=== PATIENT | female | born 1945 | race Caucasian/White ===

== ENCOUNTER 2018-03-30 10:26 | Outpatient (REF) | payer MEDICARE, SELFPAY ==
[2018-03-30 20:32] LABS: Uric Acid 3.2 mg/dL (2.6-6.0)
[2018-03-30 20:34] LABS: Abs Immature Grans 0.01 k/cumm (0.0-0.09); Absolute Basophil Count 0.03 k/cumm (0.0-0.2); Absolute Eosinophil Count 0.08 k/cumm (0.0-0.7); Absolute Lymphocyte Count 1.12 k/cumm (1.2-3.4); Absolute Neutrophil Count 5.63 k/cumm (1.2-6.7); Basophils % 0.4; Eosinophils % 1.1; HCT 43.9 % (36.0-46.0); HGB 14.4 g/dL (12.0-15.5); Immature Grans % 0.1; Lymphocytes % 15.2; Mean Corp. HGB Concentration 32.8 g/dL (32.0-36.0); Mean Corpuscular Volume 103.8 fL (80-95); Mean Platelet Volume 12.8 fL (8.0-11.0); Monocytes % 6.8; Neutrophils % 76.4; Platelet Count 102 x1000/uL (130-400); RBC 4.23 m/cumm (4.00-5.20); White Blood Cell Count 7.37 k/cumm (4.4-10.8)
== END 2018-03-30 10:46 ==
LOC: NCHCN 10:26
PROVIDERS: PCP Internal Medicine; Visit Provider Internal Medicine
DX: D69.6 Thrombocytopenia, unspecified (principal); M1A.0790 Idiopathic chronic gout, unspecified ankle and foot, without tophus (tophi)
CPT/HCPCS: 84550; 85025

== ENCOUNTER 2018-10-31 15:54 | Outpatient (REF) | payer MEDICARE, SELFPAY ==
[2018-10-31 19:46] LABS: HCT 45.4 % (36.0-46.0); Mean Corpuscular Hemoglobin 35.5 pg (27.0-33.0); Mean Corpuscular Volume 107.3 fL (80-95); Mean Platelet Volume 12.3 fL (8.0-11.0); RBC 4.23 m/cumm (4.00-5.20); RBC Distribution Width 16.1 % (11.7-14.6); White Blood Cell Count 5.16 k/cumm (4.4-10.8)
[2018-10-31 19:59] LABS: ALT 38 U/L (12-78); AST 25 U/L (15-37); Albumin 3.7 g/dL (3.4-5.0); Alkaline Phosphatase 121 U/L (46-116); BUN 12 mg/dL (7-18); Bilirubin, Total 0.6 mg/dL (0.2-1.0); CREATININE 0.79 mg/dL (0.55-1.02); Calcium 9.3 mg/dL (8.5-10.1); Chloride 104 mmol/L (98-107); Glucose 164 mg/dL (70-100); Sodium 140 mmol/L (136-145); Total Protein 6.7 g/dL (6.4-8.2); Uric Acid 3.1 mg/dL (2.6-6.0)
[2018-10-31 21:22] LABS: Platelet Count 96 x1000/uL (130-400)
== END 2018-10-31 16:14 ==
LOC: NCHCN 15:54
PROVIDERS: PCP Internal Medicine; Visit Provider Internal Medicine
DX: I10 Essential (primary) hypertension (principal); M81.0 Age-related osteoporosis without current pathological fracture; M1A.0790 Idiopathic chronic gout, unspecified ankle and foot, without tophus (tophi)
CPT/HCPCS: 80053; 85027; 84550

== ENCOUNTER 2019-11-06 18:18 | Outpatient (REF) | payer MEDICARE, SELFPAY ==
[2019-11-06 19:14] LABS: HCT 46.4 % (36.0-46.0); HGB 15.1 g/dL (12.0-15.5); Mean Corp. HGB Concentration 32.5 g/dL (32.0-36.0); Mean Corpuscular Hemoglobin 33.6 pg (27.0-33.0); Mean Corpuscular Volume 103.1 fL (80-95); Mean Platelet Volume 13.2 fL (8.0-11.0); RBC Distribution Width 14.9 % (11.7-14.6); White Blood Cell Count 5.11 k/cumm (4.4-10.8)
[2019-11-06 19:22] LABS: ALT 31 U/L (14-59); AST 24 U/L (15-37); Albumin 3.7 g/dL (3.4-5.0); Alkaline Phosphatase 113 U/L (46-116); Anion Gap 10.4 mmol/L (3-11); BUN 12 mg/dL (7-18); Bilirubin, Total 0.7 mg/dL (0.2-1.0); CO2 26.6 mmol/L (21.0-32.0); CREATININE 0.74 mg/dL (0.55-1.02); Chloride 104 mmol/L (98-107); Glucose 247 mg/dL (74-106); Potassium 4.1 mmol/L (3.5-5.1); Sodium 141 mmol/L (136-145); Total Protein 6.6 g/dL (6.4-8.2)
[2019-11-06 19:59] LABS: Platelet Count 88 x1000/uL (130-400)
== END 2019-11-06 18:38 ==
LOC: NCHCN 18:18
PROVIDERS: PCP Internal Medicine; Visit Provider Internal Medicine
DX: I10 Essential (primary) hypertension (principal); J44.9 Chronic obstructive pulmonary disease, unspecified; F17.210 Nicotine dependence, cigarettes, uncomplicated; M06.9 Rheumatoid arthritis, unspecified
CPT/HCPCS: 80053; 85027

== ENCOUNTER 2019-11-13 17:30 | Outpatient (REF) | payer MEDICARE, SELFPAY ==
[2019-11-13 20:20] LABS: COMMENT (LAB VIEW ONLY) 44.49 mg/dL; Microalb ug/mg Crea 24.7 ug/mg Cr
== END 2019-11-13 17:50 ==
LOC: LBN 17:30
PROVIDERS: PCP Internal Medicine; Visit Provider Internal Medicine
DX: E11.9 Type 2 diabetes mellitus without complications (principal)
CPT/HCPCS: 82043; 82570

== ENCOUNTER 2019-11-27 13:02 | Outpatient (REF) | payer MEDICARE, SELFPAY ==
[2019-11-27 20:05] LABS: Absolute Basophil Count 0.03 k/cumm (0.0-0.2); Absolute Eosinophil Count 0.11 k/cumm (0.0-0.7); Absolute Lymphocyte Count 0.98 k/cumm (1.2-3.4); Absolute Monocyte Count 0.46 k/cumm (0.11-0.7); Absolute Neutrophil Count 3.27 k/cumm (1.2-6.7); Basophils % 0.6; Eosinophils % 2.3; HCT 46.6 % (36.0-46.0); HGB 15.4 g/dL (12.0-15.5); Lymphocytes % 20.2; Mean Corpuscular Hemoglobin 33.6 pg (27.0-33.0); Mean Corpuscular Volume 101.5 fL (80-95); Mean Platelet Volume 13.1 fL (8.0-11.0); Monocytes % 9.5; Neutrophils % 67.4; Platelet Count 85 x1000/uL (130-400); RBC 4.59 m/cumm (4.00-5.20); RBC Distribution Width 14.9 % (11.7-14.6); White Blood Cell Count 4.85 k/cumm (4.4-10.8)
[2019-11-27 20:17] LABS: Prothrombin Time 10.3 sec (9.3-11.0)
[2019-11-27 20:23] LABS: Diff Comment PLT Morph Reviewed
[2019-11-27 20:52] LABS: Vitamin B12 102 pg/mL (193-986)
[2019-11-27 20:58] LABS: Folate > 20.0 ng/mL (8.6-20.0)
[2019-11-29 13:47] LABS: Albumin 59.4 % (55.8-66.1); Total Protein 6.6 g/dL (6.3-8.2)
[2019-11-30 15:11] LABS: Misc Referral (MAYO) See Comments
[2019-12-02 12:15] LABS: Methylmalonic Acid 0.67 nmol/mL (<=0.40)
== END 2019-11-27 13:22 ==
LOC: NCHCN 13:02
PROVIDERS: PCP Internal Medicine; Visit Provider Internal Medicine
DX: D69.6 Thrombocytopenia, unspecified (principal); Z51.81 Encounter for therapeutic drug level monitoring
CPT/HCPCS: 80186; 86022; 82607; 82746; 84165; 85025; 85610

== ENCOUNTER 2020-05-13 19:52 | Outpatient (REF) | payer MEDICARE, SELFPAY ==
[2020-05-16 21:40] LABS: COVID-19 RT-PCR Result NEGATIVE (Negative)
== END 2020-05-13 20:12 ==
LOC: NCHCN 19:52
PROVIDERS: PCP Internal Medicine; Visit Provider Internal Medicine
DX: J06.9 Acute upper respiratory infection, unspecified (principal)
CPT/HCPCS: U0003

== ENCOUNTER 2020-09-06 14:47 | Outpatient (REF) | payer MEDICARE, SELFPAY ==
--- NOTE | 2020-09-06 11:30 | SKI_PTH ---
PATIENT: June Deras LOC: [facility] U#:[id number] AGE/SX: 75/F ROOM: RE09/06/[address]: Mehrdad Chu : 1945 BED: DIS: 09/06/2020 SPEC #: [id number] RECD: 09/09/20 08:01 STATUS: VLAD AMES #: [id number] MARITZA: 09/06/20 11:[address]: Mehrdad Chu DEPT: Surgical Specimen RECD BY: Azul Currie Tissues: 1 - SKIN BIOPSY(SHAVE/PUNCH) Procedures: SKIN LEVEL 4 Comments: [id number]
== END 2020-09-06 14:48 | disposition home or self-care (01) ==
LOC: NCHCN 14:47
PROVIDERS: PCP Internal Medicine; Visit Provider Internal Medicine
DX: B07.8 Other viral warts (principal); L98.8 Other specified disorders of the skin and subcutaneous tissue
CPT/HCPCS: 88305

== ENCOUNTER 2020-11-20 16:49 | Outpatient (REF) | payer MEDICARE, SELFPAY ==
[2020-11-20 20:30] LABS: Abs Immature Grans 0.04 10^3/uL (0.0-0.06); Absolute Basophil Count 0.04 10^3/uL (0.0-0.2); Absolute Lymphocyte Count 0.65 10^3/uL (1.2-3.4); Absolute Monocyte Count 0.81 10^3/uL (0.1-0.8); Basophils % 0.4; HCT 37.4 % (36.0-46.0); HGB 10.9 g/dL (11.2-15.7); Immature Grans % 0.4; Lymphocytes % 6.5; MCH 23.4 pg (27.0-33.0); MCHC 29.1 % (32.0-36.0); MCV 80.3 fL (80-95); Monocytes % 8.1; Neutrophils % 84.6; Nucleated RBC 0 %; RBC 4.66 10^6/uL (3.93-5.22); RDW 23.2 % (11.7-14.6); RDW-SD 67.1 fL; WBC 10.04 10^3/uL (4.4-10.8)
[2020-11-20 20:39] LABS: ALT 15 U/L (14-59); AST 15 U/L (15-37); Alkaline Phosphatase 118 U/L (46-116); Anion Gap 10.6 mmol/L (3-11); BUN 9 mg/dL (7-18); Bilirubin, Total 1.1 mg/dL (0.2-1.0); CO2 26.4 mmol/L (21.0-32.0); CREATININE 0.7 mg/dL (0.55-1.02); Calcium 8.5 mg/dL (8.5-10.1); Chloride 101 mmol/L (98-107); Glucose 95 mg/dL (74-106); Potassium 4.1 mmol/L (3.5-5.1); Sodium 138 mmol/L (136-145); Total Protein 6.4 g/dL (6.4-8.2)
[2020-11-20 21:43] LABS: Platelet Count 108 10^3/uL (130-400)
[2020-11-20 21:45] LABS: Anisocytosis 3+; Diff Comment PLT Morph Reviewed; Hypochromasia 2+; Microcytosis 2+
[2020-11-20 21:46] LABS: Poikilocytes 2+
== END 2020-11-20 16:50 | disposition home or self-care (01) ==
LOC: NCHCN 16:49
PROVIDERS: PCP Internal Medicine; Visit Provider Physician Assistant
DX: D50.9 Iron deficiency anemia, unspecified (principal); K74.60 Unspecified cirrhosis of liver
CPT/HCPCS: 80053; 85025

== ENCOUNTER 2021-05-02 10:40 | Outpatient (REF) | payer MEDICARE, SELFPAY ==
[2021-05-04 17:23] LABS: COVID-19 RT-PCR UVMMC Result Negative (Negative)
== END 2021-05-02 10:41 | disposition home or self-care (01) ==
LOC: NCHCN 10:40
PROVIDERS: PCP Internal Medicine; Visit Provider Nurse Practitioner Family
DX: Z20.822 Contact with and (suspected) exposure to COVID-19 (principal); R06.02 Shortness of breath
CPT/HCPCS: U0003

== ENCOUNTER 2021-05-12 19:09 | Outpatient (REF) | payer MEDICARE, SELFPAY ==
[2021-05-12 20:50] LABS: HCT 34.3 % (36.0-46.0); HGB 9.1 g/dL (11.2-15.7); MCH 20.4 pg (27.0-33.0); MCHC 26.5 % (32.0-36.0); MCV 77.1 fL (80-95); RBC 4.45 10^6/uL (3.93-5.22); RDW 20.2 % (11.7-14.6); RDW-SD 56.3 fL; WBC 4.83 10^3/uL (4.4-10.8)
[2021-05-12 20:52] LABS: Platelet Count 110 10^3/uL (130-400)
[2021-05-12 21:13] LABS: ALT 16 U/L (14-59); AST 18 U/L (15-37); Albumin 3.1 g/dL (3.4-5.0); Alkaline Phosphatase 88 U/L (46-116); Anion Gap 7.5 mmol/L (3-11); BUN 7 mg/dL (7-18); Bilirubin, Total 0.8 mg/dL (0.2-1.0); CO2 29.5 mmol/L (21.0-32.0); CREATININE 0.7 mg/dL (0.55-1.02); Calcium 8.3 mg/dL (8.5-10.1); Chloride 106 mmol/L (98-107); Glucose 156 mg/dL (74-106); NT-proBNP 139 pg/mL (<300); Potassium 3.6 mmol/L (3.5-5.1); Sodium 143 mmol/L (136-145); Total Protein 6.4 g/dL (6.4-8.2)
== END 2021-05-12 19:10 | disposition home or self-care (01) ==
LOC: NCHCN 19:09
PROVIDERS: PCP Internal Medicine; Visit Provider Internal Medicine
DX: J44.1 Chronic obstructive pulmonary disease with (acute) exacerbation (principal); E11.9 Type 2 diabetes mellitus without complications
CPT/HCPCS: 80053; 85027; 83880

== ENCOUNTER 2022-04-15 19:47 | Outpatient (REF) | payer MEDICARE, SELFPAY ==
[2022-04-15 19:16] LABS: Vitamin B12 532 pg/mL (193-986)
== END 2022-04-15 19:48 | disposition home or self-care (01) ==
LOC: NCHCN 19:47
PROVIDERS: PCP Internal Medicine; Visit Provider Nurse Practitioner Family
DX: E53.8 Deficiency of other specified B group vitamins (principal)
CPT/HCPCS: 82607

== ENCOUNTER 2022-09-16 14:49 | Outpatient (REF) | payer MEDICARE, SELFPAY ==
[2022-09-16 21:18] LABS: HCT 32.5 % (36.0-46.0); HGB 8.7 g/dL (11.2-15.7); MCH 21.7 pg (27.0-33.0); MCHC 26.8 % (32.0-36.0); MCV 81 fL (80-95); Platelet Count 154 10^3/uL (130-400); RBC 4.01 10^6/uL (3.93-5.22); RDW 23.4 % (11.7-14.6); RDW-SD 69.2 fL; WBC 8.58 10^3/uL (4.4-10.8)
[2022-09-16 21:34] LABS: Prothrombin Time 11.7 sec (9.3-11.0)
[2022-09-16 21:36] LABS: INR 1.1 (0.9-1.1)
[2022-09-16 21:44] LABS: ALT 23 U/L (14-59); AST 16 U/L (15-37); Albumin 3.1 g/dL (3.4-5.0); Alkaline Phosphatase 131 U/L (46-116); Anion Gap 8.7 mmol/L (3-11); BUN 12 mg/dL (7-18); Bilirubin, Total 0.9 mg/dL (0.2-1.0); CO2 26.3 mmol/L (21.0-32.0); CREATININE 0.7 mg/dL (0.55-1.02); Calcium 7.9 mg/dL (8.5-10.1); Chloride 103 mmol/L (98-107); Estimated GFR 88.47 (mL/min/1.73m2); Glucose 285 mg/dL (74-106); Potassium 3.9 mmol/L (3.5-5.1); Sodium 138 mmol/L (136-145); Total Protein 6.7 g/dL (6.4-8.2)
== END 2022-09-16 14:50 | disposition home or self-care (01) ==
LOC: NCHCN 14:49
PROVIDERS: PCP Internal Medicine; Visit Provider Internal Medicine
DX: E11.9 Type 2 diabetes mellitus without complications (principal); K74.60 Unspecified cirrhosis of liver; E53.8 Deficiency of other specified B group vitamins
CPT/HCPCS: 80053; 85027; 85610

== ENCOUNTER 2022-10-05 16:17 | Outpatient (REF) | payer MEDICARE, SELFPAY ==
--- NOTE | 2022-10-05 16:00 | SKI_PTH ---
PATIENT: June Deras LOC: [facility] U#:[id number] AGE/SX: 77/F ROOM: RE10/05/[address]: Mehrdad Chu : 1945 BED: DIS: 10/05/2022 SPEC #: [id number] RECD: 10/06/22 12:45 STATUS: VLAD AMES #: [id number] MARITZA: 10/05/22 16:[address]: Mehrdad Chu DEPT: Surgical Specimen RECD BY: Azul Currie Tissues: 1 - SKIN BIOPSY(SHAVE/PUNCH) Procedures: SKIN LEVEL 4 Comments: [id number]
== END 2022-10-05 16:18 | disposition home or self-care (01) ==
LOC: LBN 16:17
PROVIDERS: PCP Internal Medicine; Visit Provider Internal Medicine
DX: D04.72 Carcinoma in situ of skin of left lower limb, including hip (principal)
CPT/HCPCS: 88305

== ENCOUNTER 2022-12-21 10:01 | Outpatient (CLI) | payer MEDICARE, SELFPAY ==
--- NOTE | 2022-12-21 09:45 | DI.RAD_ITS ---
Exam(s) XR KNEE RT 3V AP,LAT,BIANCA XR FEMUR RT EXAM: XR KNEE RT 3V AP,LAT,BIANCA and XR femur RT CLINICAL HISTORY: f/u ORIF R Patella. TECHNIQUE: 2D digital imaging was performed of the right femur and knee. Seven views obtained. [place], AP and lateral views were obtained. COMPARISON: CR ORTHO KNEE BILAT 1 OR 2 VIEWS from 04/09/2021 CR XR KNEE 3V RT from 02/23/2022 FINDINGS: BONES: There has been no change in alignment of the healed patellar fracture. Percutaneous pins and wires are again seen transfixing the old fracture. No acute fractures identified. No bony destructi ve lesion is seen. No acute abnormality is seen in the femur. JOINTS: The knee is normally aligned. There is a tiny joint effusion. 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 SOFT TISSUE: Atherosclerosis is present. IMPRESSION: 1. Stable healed patellar fracture. 2. Tiny joint effusion. 3. No acute abnormality. DATA REPOSITORY: RADIATION DOSE DELIVERED:
== END 2022-12-21 10:02 | disposition home or self-care (01) ==
LOC: DIORS 10:02
PROVIDERS: PCP Internal Medicine; Referring Provider Internal Medicine; Visit Provider Student in an Organized Health Care Education/Training Program
DX: M79.651 Pain in right thigh (principal); R29.898 Other symptoms and signs involving the musculoskeletal system; Z87.81 Personal history of (healed) traumatic fracture
CPT/HCPCS: 73552; 73562; 99203